=== PATIENT | female | born 1950 ===

== ENCOUNTER 2024-06-29 10:39 | Outpatient (CLI) | payer MEDICARE, SELFPAY ==
--- OUTSIDE RECORDS SUMMARY | 2024-06-29 10:45 | XMS_ITS | Referral Summary ---
Author Organization [facility] at the Medical Office Building Address [address] [place] [phone] Care Team Providers Care Game Trapper Name Role Phone Justina Lepe MD Primary Care Provider Nicolle Collins MD Unavailable [phone] Encounters Date Type Department Care Team Description 05/30/2024 10:35 AM CDT Lab [facility] Lab [address] [place] [address] 05/23/[address] [address] Nicolasa Medellin, RN 05/23/2024 Telephone [facility] Medical [facility] [address] [place] [phone] Justina Lepe MD Medical Question/Miscellane ous 05/15/2024 Telephone [facility] Medical [facility] [address] [place] [phone] Justina Lepe MD Test Results 05/01/2024 Results Follow-Up [facility] [address] [place] [phone] Kellie Bañuelos NP 04/30/2024 11:00 AM CDT - 04/30/2024 11:59 PM CDT Hospital Encounter [facility] - Breast Imaging [address] [place] [address] 8 [place] [address] Abnormal mammogram Discharge Disposition: Discharge to home or self care 04/30/2024 10:30 AM CDT Office Visit [facility] [address] [facility] 8 [place] [address] Kellie Bañuelos NP Encounter for screening mammogram for malignant neoplasm of breast (Primary Dx); Abnormal mammogram; Mass of right breast, unspecified quadrant 04/19/2024 Telephone [facility] [address] [place] [phone] Justina Lepe MD Medical Question/Miscellane ous from Last 3 Months Allergies Active Allergy Reactions Criticality Noted Date Comments Biotin Dizziness Low 03/24/2023 Meperidine Unknown 07/01/2014 Medications medroxyPROGESTE Jase (PROVERA) 2.5 mg tablet Take 1 tablet (2.5 mg total) by mouth daily 11/23/2019 Active estradioL (ESTRACE) 0.5 mg tablet Take 1 tablet (0.5 mg total) by mouth daily 11/23/2019 Active magnesium oxide 400 mg magnesium capsule Take by mouth daily as needed Active ergocalciferol (VITAMIN D) 50,000 unit capsule Every other week 11/12/2019 Active calcium carbonate/vitam in D3 (CALCIUM+D ORAL) Rx: Calcium + D Active fexofenadine (LONG) 180 mg tablet Take 1 tablet (180 mg total) by mouth daily Active multivitamin capsule Take 1 capsule by mouth daily Active finasteride (PROSCAR) 5 mg tablet Take 1 tablet (5 mg total) by mouth daily Active rOPINIRole (REQUIP) 0.5 mg tablet Take 1 tablet (0.5 mg total) by mouth nightly 90 tablet 4 03/29/2024 Active Active Problems Problem Noted Date Diagnosed Date Solitary pulmonary nodule 12/28/2019 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 Bronchiectasis without complication 05/18/2017 Recurrent pneumonia 05/18/2017 Immunizations Immunization Administration Dates Next Due Influenza, Quad, Adjuvantate d, Intramuscular 01/07/2023 Influenza, Quadrivalent, Hig h Dose, Preservative Free, Intrr 01/20/2022,12/08/2020,12/06/2019,12/21,01/20/2018,12/15/2016 Influenza, Quadrivalent, Spl it, Preservative Free, Intramuscular 02/25/2016 Influenza, Trivalent, High D ose, Split, Preservative Free, Intramuscular 12/23/2023,12/21/2018,01/20/2018,12/15 Influenza, Unspecified 03/08/2018,02/25/2016 Moderna SARS-CoV-2 Monovalen t Vaccination (12+ YRS) 04/28/2020,03/31/2020 Pneumococcal Conjugate PCV 13 10/10/2017 Pneumococcal Polysaccharide PPV23 10/06/2016 ZOSTER Recombinant 06/06/2020,02/01/2020 Social History Tobacco Use Types Packs/Day Years Used Date Smoking Tobacco: Never Smokeless Tobacco: Never Tobacco Cessation:Counseling Given: Not Answered Alcohol Use Standard Drinks/Week Comments Yes 0 (1 standard drink = 0.6 oz pur e alcohol) social AUDIT-C Answer Date Recorded Q1: How often do you have a drink containing alc ohol? Monthly or less 05/18/2023 Q2: How many drinks containi ng alcohol do you have on a typical day when you are drinking? 1 or 2 05/18/2023 Q3: How often do you have si x or more drinks on one occasion? Less than monthly 05/18/2023 PHQ-2 Answer Date Recorded PHQ-2 Total Score (If total score is 3 or more points, staff should administer the PHQ-9) 0 03/29/2024 PHQ-9 Answer Date Recorded PHQ-9 Total Score 0 03/29/2024 Comments Unknown Sex and Gender Information Value Date Recorded Sex Assigned at Not on file Legal Sex Female 5:55 PM MANAGEMENT ASSOCIATE Gender Identity Female 11/29/2020 1:15 PM CDT Sexual Orientation Straight 11/29/2020 1: 15 PM CDT Last Filed Vital Signs Vital Sign Reading Time Taken Comments Blood Pressure 120/70 03/29/2024 10:22 AM MANAGEMENT ASSOCIATE Pulse 81 03/29/2024 10:22 AM MANAGEMENT ASSOCIATE Temperature 36.3 C (97.3 F) 03/29/2024 10:22 AM MANAGEMENT ASSOCIATE Respiratory Rate 16 09/22/2020 12:42 PM CDT Oxygen Saturation 95% 03/29/2024 10:22 AM MANAGEMENT ASSOCIATE Inhaled Oxygen Concentration - - Weight 54.2 kg (119 lb 6.4 oz) 04/30/2024 10:39 AM CDT Height 157.5 cm (5' 2 ) 04/30/2024 10:39 AM CDT Body Mass Index 21.84 04/30/2024 10:39 AM CDT Plan of Treatment Not on file Medical Devices Implanted Type Area Ccnp Device Identifier Shelf Expiration Date Model / Serial / Lot Bard Peripheral Vascular Ultraclip Bard 17ga 10cm 2 Trigger Permanent Ultrasound [id number] - [id number] Implanted:Qty: 1 on 08/09/2023 by Yareli Sanchez MD at [facility] Right: Breast Bard Peripheral Vascular [id number] / / Procedures Procedure Name Priority Date/Time Associated Diagnosis Comments EGFR Routine 05/30/2024 11:35 AM CDT CREATININE Routine 05/30/2024 11:35 AM CDT SCREENING MAMMOGRAM BILATERAL W BAYRON Schedule Routine, Read Routine (OP Routine) 04/30/2024 11:14 AM CDT Abnormal mammogram HM DEXA SCAN Routine 05/10/2022 COLONOSCOPY Routine 08/06/2014 from Last 3 Months or Most Recently Relevant to Health Maintenance Results * eGFR (05/30/2024 11:35 AM CDT) eGFR 68 >=60 mL/min/1. 73 m2 Comment: Interpretive Data Reference Interval Normal >/= 90 mL/min/1.73m2 Mildly decreased* 60 - 89 mL/min/1.73m2 Mildly to moderately decreased 45 - 59 mL/min/1.73m2 Moderately to severely decreased 30 - 44 mL/min/1.73m2 Severely decreased 15 - 29 mL/min/1.73m2 Kidney Failure < 15 mL/min/1.73m2 *Relative to young adult level Estimated glomerular filtration rate is determined by the 2020 CKD-EPI equation recommended by the National Kidney Foundation (A Unifying Approach to GFR Estimation: Recommendations of the NKF-ASK Task Force on Reassessing the Inclusion of Race in Diagnosing Kidney Disease, JASN 2020). The CKD-EPI equation should not be used for patients with unstable renal function and has not been validated in children and those over 70. Current interpretive data was last reviewed 2020. Testing performed by: [address] [address] Blood 05/30/2024 11:3 5 AM CDT 05/30/2024 11:51 AM CDT Nicolle Collins MD LAB BLOOD ORDERABLES Fin al Result Performing Organization Address [facility] Co de Phone Number [address] [employer] [place] [address] * Creatinine (05/30/2024 11:35 AM CDT) Creatinine 0.90 0.60 - 1.10 mg/dL Comment:Testing performed by : [facility], [address] [place] [address]., [id number] Blood 05/30/2024 11:3 5 AM CDT 05/30/2024 11:51 AM CDT Nicolle Collins MD LAB BLOOD ORDERABLES Fin al Result Performing Organization Address City/[facility] Co de Phone Number [address] [place] [address] * Screening Mammogram Bilateral W Bayron (04/30/2024 11:14 AM CDT) Anatomical Region Laterality Modality Breast Bilateral Mammography Narrative 05/01/2024 3:08 PM CDT Mammogram Technique: Bilateral Digital Breast Tomosynthesis, Bilateral C-view 2D Screening mammogram. Views obtained: . Computer Aided Detection was performed. Mammogram Findings: The present examination has been compared to prior imaging studies performed on 02/08/2018, 02/09/2019, 02/29/2020, 03/09/2021, 05/10/2022, 05/28/2022 and 05/19/2023, and at [facility] on 07/12/2023. The breasts are extremely dense, which lowers the sensitivity of mammography. There are calcifications in both breasts. There are no significant changes from the prior study. There is no suspicious abnormality in either breast. Impression: There is no mammographic evidence of malignancy. Annual screening mammography is recommended. Consider breast MRI for supplemental screening given the patient's extremely dense breast tissue. OVERALL FINAL ASSESSMENT: BI-RADS CATEGORY 2: Benign. Procedure Note Dana Nation MD - 05/01/2024 Mammogram Technique: Bilateral Digital Breast Tomosynthesis, Bilateral C-view 2D Screening mammogram. Views obtained: . Computer Aided Detection was performed. Mammogram Findings: The present examination has been compared to prior imaging studies performed on 02/08/2018, 02/09/2019, 02/29/2020, 03/09/2021, 05/10/2022, 05/28/2022 and 05/19/2023, and at [facility] on 07/12/2023. The breasts are extremely dense, which lowers the sensitivity of mammography. There are calcifications in both breasts. There are no significantchanges from the prior study. There is no suspicious abnormality in either breast. Impression: There is no mammographic evidence of malignancy. Annual screening mammography is recommended. Consider breast MRI for supplemental screening given the patient's extremely dense breasttissue. OVERALL FINAL ASSESSMENT: BI-RADS CATEGORY 2: Benign. Kellie Bañuelos NP IMG MAMMO PROCEDURES Final Result * DEXA SCAN (05/10/2022) Scribed Deca Scan Normal Historical Provider HEALTH MAINTENANCE Final Result * Colonoscopy (08/06/2014) Anatomical Region Laterality Modality Other us Historical Provider ENDOSCOPY PROCEDURES Soas l Result from Last 3 Months or Most Recently Relevant to Health Maintenance Insurance AETNA MEDICARE AET MEDICARE Care Teams Game Trapper Relationship Specialty Start Date End Date Justina Lepe MD PCP - General 07/22/18 Nicolle Collins MD [address] [facility] [address] [place] [phone] Referring Physician Gynecology 05/23/24
--- OUTSIDE RECORDS SUMMARY | 2024-06-29 10:45 | XMS_ITS | Encounter Summary ---
Author Organization [facility] Address [address] [facility] [address] [place] [address] Phone Care Team Providers Care Implementation Specialist Name Role Phone Justina Lepe MD Primary Care Provider Nicolle Collins MD Unavailable [phone] Encounter Details Date Type Department Care Team (Late st Contact Info) Description 05/01/2024 Results Follow-Up [facility] Surgery [address] [facility] Floor 8 [place] [phone] Kellie Bañuelos, ARUNA [address] [facility] [phone] [place] [address] Social History Tobacco Use Types Packs/Day Years Used Date Smoking Tobacco: Never Smokeless Tobacco: Never Alcohol Use Standard Drinks/Week Comments Yes 0 [...] on file Legal Sex Female 5:55 PM ELIGIBILITY WORKER Gender Identity Female 11/29/2020 1:15 PM CDT Sexual Orientation Straight 11/29/2020 1: 15 PM CDT documented as of this encounter Plan of Treatment Not on file documented as of this encounter Visit Diagnoses Not on filedocumented in this encounter Care Teams Implementation Specialist Relationship Specialty Start Date End Date Justina Lepe MD PCP - General 07/22/18 Nicolle Collins MD [facility] [address] [address] Referring Physician Gynecology 05/23/24 documented as of this encounter
--- OUTSIDE RECORDS SUMMARY | 2024-06-29 10:45 | XMS_ITS | Clinical Summary ---
Author Organization [facility] Address [facility] [place] [address] Care Team Providers Care Forest Firefighter Name Role Phone Justina Lepe MD Primary Care Provider [phone] Allergies Active Allergy Reactions Criticality Noted Date Comments Meperidine Unknown 07/01/2014 Medications Ca & Phos-Vit D-Mag (CALCIUM) [phone] Tab Active vitamin B-12 500 MCG tablet Activ e vitamin D2, ergocalciferol, [address]86 UNITS capsule 03/21/2014 Active Magnesium Oxide -Mg Supplement 400 MG Cap Active estradiol 0.5 MG tablet Take 0.5 mg by mouth daily. Active fexofenadine 180 MG tablet Rx: Cassy Acti ve medroxyPROGESTE Jase 2.5 MG tablet 11/23/2019 Active Multiple Vitamin (MULTIVITAMIN) capsule Take 1 capsule by mouth daily. 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 [address] [facility] [place] [address] Nicolle Collins MD Discharge Disposition: Home or Self Care (Routine Discharge) 05/11/2024 Travel from Last 3 Months Immunizations Immunization Administration Dates Next Due Fluzone High Dose - >Age 65 (Prefilled Syringe) 12/08/2020,12/06/2019,12/21/2018,2017,12/15/2016 Influenza (Generic) 03/08/2018 Influenza Adult (Generic) 03/08/2018,02/25/2016, 02/25/2016 MODERNA COVID-19 (12+) MRNA, LNP-S, PF, 100 MCG/ 0.5 ML DOSE 04/28/2020,03/31/2020 Pneumococcal (Pneumovax 23) 10/06/2016 Pneumococcal (Prevnar 13) 10/10/2017 Family History Medical History Relation Comments No Known Problems Brother Dementia Father Hypertension Mother Breast Cancer Other maternal great a unt No Known Problems Sister 1 No Known Problems Sister 2 Relation Status Comments Brother Alive Father Mother Alive Other Sister 1 Alive Sister 2 Alive Social History Tobacco Use Types Packs/Day Years Used Date Smoking Tobacco: Never Smokeless Tobacco: Never Tobacco Cessation:Counseling Given: Yes Alcohol Use Standard Drinks/Week Comments Yes 0 (1 standard drink = 0.6 oz pur e alcohol) rare AUDIT-C Answer Date Recorded Frequency of Alcohol Consumption Never 05/03/2019 Average Number of Drinks Not on file 020 Frequency of Binge Drinking Not on file 04/21 PHQ-2 Answer Date Recorded PHQ-2 Score - If the patient scores above 3, please move on to questions 3-9 0 12/30/2020 Comments No Sex and Gender Information Value Date Recorded Sex Assigned at Female 04/12/2019 9:53 AM PAYABLE PROCESSOR Legal Sex Female 6:38 PM CDT Gender Identity Female 04/12/2019 9:53 AM PAYABLE PROCESSOR Sexual Orientation Straight 04/12/2019 9: 53 AM PAYABLE PROCESSOR Last Filed Vital Signs Vital Sign Reading Time Taken Comments Blood Pressure 129/87 12/30/2021 10:33 AM PAYABLE PROCESSOR Pulse 78 12/30/2021 10:33 AM PAYABLE PROCESSOR Temperature 35.9 C (96.7 F) 12/30/2021 10:33 AM PAYABLE PROCESSOR Respiratory Rate 28 12/30/2021 10:33 AM PAYABLE PROCESSOR Oxygen Saturation 100% 12/30/2021 10:33 AM PAYABLE PROCESSOR Inhaled Oxygen Concentration - - Weight 53.5 kg (118 lb) 12/30/2021 10:33 AM PAYABLE PROCESSOR Height 157.5 cm (5' 2 ) 12/30/2021 10:33 AM PAYABLE PROCESSOR Body Mass Index 21.58 12/30/2021 10:33 AM PAYABLE PROCESSOR Plan of Treatment Health Maintenance Due Date Last Done Comments Colorectal Cancer Screening Colonoscopy (10 Years) 1950 Hepatitis C 12/06/1969 DTaP, Tdap and Td Vaccines (1 - Tdap) 12/06/1970 RSV Immunization or 60+ Years (1 - Risk 60-74 years 1-dose series) 2011 Annual Medicare Wellness Visit 12/06/2016 Pneumococcal Vaccine: 50+ Years (3 of 3 - PCV20 or PCV21) 10/10/2022 10/10/2017, 10/06/2016 COVID-19 Vaccine (3 - season) 2023 04/28/2020, 03/31/2020 Mammogram Screening 04/30/2026 04/30/2024, 07/12/2023, 05/16/2023, Additional history exists Zoster Vaccines Completed 06/06/2020, 02/01/2020 Dexa Scan (General) Completed 05/11/2024, 05/10/2022, 02/29/2020, Additional history exists Meningococcal B Vaccine Aged Out No l onger eligible based on patient's age to complete this topic Meningococcal Vaccine Aged Out No christie jimmy eligible based on patient's age to complete this topic RSV Immunizations Under 20 Months Aged Out No longer eligible based on patient's age to complete this topic Procedures Procedure Name Priority Date/Time Associated Diagnosis Comments BONE DENSITY/DEXA Routine 05/11/2024 9:0 9 AM CDT Postmenopausal status MG DIAG W BAYRON BILAT DIGI Routine 05/16/2023 11:24 AM CDT Lump of right breast Unspecified lump in the right breast, upper outer quadrant from Last 3 Months or Most Recently Relevant to Health Maintenance Results * BONE DENSITY/DEXA (05/11/2024 9:09 AM CDT) Anatomical Region Laterality Modality Bone Mammography 05/11/2024 9:06 AM CDT Impressions 05/11/2024 9:08 AM CDT IMPRESSION: WHO Classification: Osteoporosis. RECOMMENDATIONS: All patients should ensure an adequate intake of dietary calcium and vitamin D. The NOF recommend adults under the age of 50 need 1000 mg of calcium and 400-800 IU of vitamin D daily. Effective therapy for the prevention and treatment of osteoporosis include bisphosphonates. FOLLOW-UP: People with diagnosed cases of osteoporosis or at high risk for fracture should have regular bone mineral density test. For patients eligible for Medicare, routine testing is allowed once every 2 years. Testing frequency can be increased to one year for patients who have rapidly progressing disease, those who are receiving or discontinuing medical therapy to restore bone mass, or have additional risk factors. Ordered By: NICOLLE COLLINS Interpreted By: Aaron Zavala, 05/11/2024 9:06 AM Narrative 05/11/2024 9:08 AM CDT [facility] [address] [place] [address] EXAMINATION: BONE DENSITY/DEXA INDICATIONS: Asymptomatic menopausal state COMPARISON: 05/10/2022 TECHNIQUE: DEXA bone mineral density evaluation was performed in the AP projection over the lumbar spine and both hips utilizing standard imaging techniques. FINDINGS: The BMD measured at the AP spine L1-L4 is 0.921 g/cm? with a T-score of -1.1 (previously 0.961 g/cm? with a T-score of -0.8). The BMD measured at the left femoral neck is 0.570 g/cm? with a T-score of -2.5 (previously 0.578 g/cm? with a T-score of -2.4). The BMD measured at the left hip is 0.770 g/cm? with a T-score of -1.4 (previously 0.737 g/cm? with a T-score of -1.7). The BMD measured at the right femoral neck is 0.610 g/cm? with a T-score of -2.2 (previously 0.614 g/cm? with a T-score of -2.1). The BMD measured at the right hip is 0.734 g/cm? with a T-score of -1.7 (previously 0.715 g/cm? with a T-score of -1.9). FRAX 10-year fracture risk: Major Osteoporotic Fracture: 14% Hip Fracture: 3.9% Procedure Note Aaron Zavala MD - 05/11/2024 [facility] [address] [place] [address] EXAMINATION: BONE DENSITY/DEXA INDICATIONS: Asymptomatic menopausal state COMPARISON: 05/10/2022 TECHNIQUE: DEXA bone mineral density [facility] the lumbar spine and both hips utilizing standard imagingtechniques. FINDINGS: The BMD measured at the AP spine L1-L4 is 0.921 g/cm? with a T-score of-1.1 (previously 0.961 g/cm? with a T-score of -0.8). The BMD measured at the left femoral neck is 0.570 g/cm? with a T-score of-2.5 (previously 0.578 g/cm? with a T-score of -2.4). The BMD measured at the left hip is 0.770 g/cm? with a T-score of - 1.4(previously 0.737 g/cm? with a T-score of -1.7). The BMD measured at the right femoral neck is 0.610 g/cm? with a T-scoreof -2.2 (previously 0.614 g/cm? with a T-score of -2.1). The BMD measured at the right hip is 0.734 g/cm? with a T-score of - 1.7(previously 0.715 g/cm? with a T-score of -1.9). FRAX 10-year fracture risk: Major Osteoporotic Fracture: 14% Hip Fracture: 3.9% IMPRESSION: WHO Classification: Osteoporosis. RECOMMENDATIONS: All patients should ensure an adequate intake of dietary calcium andvitamin D. The NOF recommend adults under the age of 50 need 1000 mg ofcalcium and 400-800 IU of vitamin D daily. Effective therapy for theprevention and treatment of osteoporosis include bisphosphonates. FOLLOW-UP: People with diagnosed cases of osteoporosis or at high risk for fractureshould have regular bone mineral density test. For patients eligible forMedicare, routine testing is allowed once every 2 years. Testing frequencycan be increased to one year for patients who have rapidly progressingdisease, those who are receiving or discontinuing medical therapy torestore bone mass, or have additional risk factors. Ordered By: NICOLLE COLLINS Interpreted By: Aaron Zavala, 05/11/2024 9:06 AM Nicolle Collins MD DEXA Final Res ult from Last 3 Months Insurance AETNA Care Teams Forest Firefighter Relationship Specialty Start Date End Date Justina Lepe MD PCP - General INTERNAL MEDICINE 06/29/17
--- OUTSIDE RECORDS SUMMARY | 2024-06-29 10:45 | XMS_ITS | Encounter Summary ---
Author Organization [facility] Address [address] [place] [address] Care Team Providers Care Red Mud Thickener Operator Name Role Phone Unavailable Primary Care Provider Unavailabl e Reason for Visit * Diagnostic Imaging (Routine) - Closed Specialty Diagnoses / Procedures Referred By Contac t Referred To Contact Procedures Breast Imaging Diagnostic Outside Reference Transcribed Order, Provider Referral ID Status Reason Start Date Expiration Date Visits Re quested Visits Authorized [id number] Closed 04/18/2023 05/17/2024 1 1 Encounter Details Date Type Department Care Team (Late st Contact Info) Description 01/20/2017 12:05 AM PUMP OPERATOR BYPRODUCTS Hospital Encounter [facility] [address] [place] [address] Social History Tobacco Use Types Packs/Day Years [...] on file Legal Sex Female 5:55 PM PUMP OPERATOR [employer]PRODUCTS Gender Identity Female 11/29/2020 1:15 PM CDT Sexual Orientation Straight 11/29/2020 1: 15 PM CDT documented as of this encounter Functional Status * Audit-C Score Answer Date of Assessment Author 2 03/28/2024 12:15 PM PUMP OPERATOR BYPRODUCTS Launn Flores Provider * Q1: How often do you have a drink containing alcohol? Answer Date of Assessment Author 2-4 times a month 03/28/2024 12:15 PM PUMP OPERATOR BYPRODUCTS Luann Nam Provider * Q2: How many drinks containing alcohol do you have on a typical day when you are drinking? Answer Date of Assessment Author 1 or 2 03/28/2024 12:15 PM PUMP OPERATOR BYPRODUCTS Luann Flores Provider * Q3: How often do you have six or more drinks on one occasion? Answer Date of Assessment Author Never 03/28/2024 12:15 PM PUMP OPERATOR [employer]PRODUCTS Luann Flores Provider documented as of this encounter Plan of Treatment Not on file documented as of this encounter Procedures Procedure Name Priority Date/Time Associated Diagnosis Comments BREAST IMAGING MG DIAGNOSTIC OUTSIDE REFERENCE Routine 01/20/2017 12:05 AM PUMP OPERATOR BYPRODUCTS documented in this encounter Results * Breast Imaging Diagnostic Outside Reference (01/20/2017 12:05 AM PUMP OPERATOR BYPRODUCTS) Impressions [facility] - 04/18/2023 3:33 PM PUMP OPERATOR BYPRODUCTS These images are for Reference purposes only and have not been reviewed by [facility]. There will be no report generated by a [facility] Radiologist. Narrative [facility] - 04/18/2023 3:33 PM PUMP OPERATOR BYPRODUCTS EXAMINATION: Images For Reference Purposes Only us Provider Transcribed Order IMG MAMMO PROCEDURES Final Result [facility] documented in this encounter Visit Diagnoses Not on filedocumented in this encounter
--- OUTSIDE RECORDS SUMMARY | 2024-06-29 10:45 | XMS_ITS | Encounter Summary ---
Author Organization [facility] Healthcare Address [address] [place] [address] Care Team Providers Care Insurance Coder Name Role Phone Justina Lepe MD Primary Care Provider Reason for Visit * Diagnostic Imaging (Routine) - Closed Specialty Diagnoses / Procedures Referred By Contac t Referred To Contact Procedures Breast Imaging Screening Outside Reference Transcribed Order, Provider Referral ID Status Reason Start Date Expiration Date Visits Re quested Visits Authorized [id number] Closed 04/18/2023 05/17/2024 1 1 Encounter Details Date Type Department Care Team (Late st Contact Info) Description 02/09/2019 Hospital Encounter [facility] [address] [place] [phone] Social History Tobacco Use Types Packs/Day Years [...] on file Legal Sex Female 5:55 PM VP OF PRODUCT Gender Identity Female 11/29/2020 1:15 PM CDT Sexual Orientation Straight 11/29/2020 1: 15 PM CDT documented as of this encounter Functional Status * Audit-C Score Answer Date of Assessment Author 2 03/28/2024 12:15 PM VP OF PRODUCT Luann Flores Provider * Q1: How often do you have a drink containing alcohol? Answer Date of Assessment Author 2-4 times a month 03/28/2024 12:15 PM VP OF PRODUCT Luann Nam Provider * Q2: How many drinks containing alcohol do you have on a typical day when you are drinking? Answer Date of Assessment Author 1 or 2 03/28/2024 12:15 PM VP OF PRODUCT Luann Flores Provider * Q3: How often do you have six or more drinks on one occasion? Answer Date of Assessment Author Never 03/28/2024 12:15 PM VP OF PRODUCT Luann Flores Provider documented as of this encounter Plan of Treatment Not on file documented as of this encounter Procedures Procedure Name Priority Date/Time Associated Diagnosis Comments BREAST IMAGING MG SCREENING OUTSIDE REFERENCE Routine 02/09/2019 12:00 AM VP OF PRODUCT documented in this encounter Results * Breast Imaging Screening Outside Reference (02/09/2019 12:00 AM VP OF PRODUCT) Impressions [facility]MO[facility] - 04/18/2023 3:33 PM VP OF PRODUCT These images are for Reference purposes only and have not been reviewed by [facility] Radiology. There will be no report generated by a [facility] Radiologist. Narrative [facility]MO[facility] - 04/18/2023 3:33 PM VP OF PRODUCT EXAMINATION: Images For Reference Purposes Only us Provider Transcribed Order IMG MAMMO PROCEDURES Final Result [facility] documented in this encounter Visit Diagnoses Not on filedocumented in this encounter Care Teams Insurance Coder Relationship Specialty Start Date End Date Justina Lepe MD PCP - General 07/22/18 documented as of this encounter
--- OUTSIDE RECORDS SUMMARY | 2024-06-29 10:45 | XMS_ITS | Encounter Summary ---
Author Organization [facility] Healthcare Address [address] [place] [address] Care Team Providers Care Asbestos Removal Worker Name Role Phone Unavailable Primary Care Provider Unavailabl e Reason for Visit * Diagnostic Imaging (Routine) - Closed Specialty Diagnoses / Procedures Referred By Contac t Referred To Contact Procedures Breast Imaging Screening Outside Reference Transcribed Order, Provider Referral ID Status Reason Start Date Expiration Date Visits Re quested Visits Authorized [id number] Closed 04/18/2023 05/17/2024 1 1 Encounter Details Date Type Department Care Team (Late st Contact Info) Description 01/07/2017 Hospital Encounter [facility] Radiology [facility] [address] [place] [address] [phone] Social History Tobacco Use Types Packs/Day Years [...] on file Legal Sex Female 5:55 PM BROACH GRINDER Gender Identity Female 11/29/2020 1:15 PM CDT Sexual Orientation Straight 11/29/2020 1: 15 PM CDT documented as of this encounter Functional Status * Audit-C Score Answer Date of Assessment Author 2 03/28/2024 12:15 PM BROACH GRINDER Luann Flores Provider * Q1: How often do you have a drink containing alcohol? Answer Date of Assessment Author 2-4 times a month 03/28/2024 12:15 PM BROACH GRINDER Luann Nam Provider * Q2: How many drinks containing alcohol do you have on a typical day when you are drinking? Answer Date of Assessment Author 1 or 2 03/28/2024 12:15 PM BROACH GRINDER Luann Flores Provider * Q3: How often do you have six or more drinks on one occasion? Answer Date of Assessment Author Never 03/28/2024 12:15 PM BROACH GRINDER Luann Florse Provider documented as of this encounter Plan of Treatment Not on file documented as of this encounter Procedures Procedure Name Priority Date/Time Associated Diagnosis Comments BREAST IMAGING MG SCREENING OUTSIDE REFERENCE Routine 01/07/2017 12:00 AM BROACH GRINDER documented in this encounter Results * Breast Imaging Screening Outside Reference (01/07/2017 12:00 AM BROACH GRINDER) Impressions [facility]MO[facility] - 04/18/2023 3:33 PM BROACH GRINDER These images are for Reference purposes only and have not been reviewed by [facility] Radiology. There will be no report generated by a [facility] Radiologist. Narrative RAD[facility]MAMMO[facility] - 04/18/2023 3:33 PM BROACH GRINDER EXAMINATION: Images For Reference Purposes Only us Provider Transcribed Order IMG MAMMO PROCEDURES Final Result [facility] documented in this encounter Visit Diagnoses Not on filedocumented in this encounter
--- OUTSIDE RECORDS SUMMARY | 2024-06-29 10:45 | XMS_ITS | Encounter Summary ---
Author Organization [facility] Facility Care Team Providers Care Inhalation Therapy Aide Name Role Phone Justina Lepe MD Primary Care Provider Nicolle Collins MD Unavailable [phone] Encounter Details Date Type Department Care Team (Latest Contact Info) Description 09/30/2017 Orders Only [facility] Provider, MD Mary Ellen [address] [place] [phone] Social History Tobacco Use Types Packs/Day Years Used Date Smoking Tobacco: Never Assessed Comments Unknown Sex and Gender Information Value Date Recorded Sex Assigned at Not on file Legal Sex Female 5:55 PM CYBER SECURITY ARCHITECT Gender Identity Female 11/29/2020 1:15 PM CDT Sexual Orientation Straight 11/29/2020 1: 15 PM CDT documented as of this encounter Plan of Treatment Not on file documented as of this encounter Procedures Procedure Name Priority Date/Time Associated Diagnosis Comments SCAN - LABS 09/30/2017 12:00 AM CDT SCAN - LABS 09/30/2017 12:00 AM CDT documented in this encounter Results * SCAN - LABS (09/30/2017 12:00 AM CDT) Narrative 09/30/2017 12:00 AM CDT Ordered by an unspecified provider. Historical Provider Final Res ult * SCAN - LABS (09/30/2017 12:00 AM CDT) Narrative 09/30/2017 12:00 AM CDT Ordered by an unspecified provider. us Historical Provider Final Res ult documented in this encounter Visit Diagnoses Not on filedocumented in this encounter Care Teams Inhalation Therapy Aide Relationship Specialty Start Date End Date Justina Lepe MD PCP - General 07/22/18 Nicolle Collins MD [address] [place] [id number] Referring Physician Gynecology 05/23/24 documented as of this encounter
--- OUTSIDE RECORDS SUMMARY | 2024-06-29 10:45 | XMS_ITS | Clinical Summary ---
Author Organization [facility] Address [address] [place] [phone] Care Team Providers Care Machine Bander And Cellophaner Name Role Phone Justina Lepe MD Primary Care Provider Nicolle Collins MD Unavailable Allergies Active Allergy Reactions Criticality Noted Date [...] Bronchiectasis without complication 05/18/2017 Recurrent pneumonia 05/18/2017 Encounters Date Type Department Care Team Description 05/30/2024 10:35 AM CDT Lab [facility] Lab [address] [place] [address] 05/23/2024 Telephone [facility] [address] [place] [phone] Nicolasa Medellin RN 05/23/2024 Telephone [facility] [address] [place] [phone] Justina Lepe MD Medical Question/Miscellane ous 05/15/2024 Telephone [facility] Care [address] [place] [phone] Justina Lepe MD Test Results 05/01/2024 Results Follow-Up [facility] Surgery [address] [place] [phone] Kellie Bañuelos NP 04/30/2024 11:00 AM CDT - 04/30/2024 11:59 PM CDT Hospital Encounter [facility] [employer] - Breast Imaging [address] [place] [phone] Abnormal mammogram Discharge Disposition: Discharge to home or self care 04/30/2024 10:30 AM CDT Office Visit [facility] [address] [place] [phone] Kellie Bañuelos NP Encounter for screening mammogram for malignant neoplasm of breast (Primary Dx); Abnormal mammogram; Mass of right breast, unspecified quadrant 04/19/2024 Telephone [facility] [address] [place] [phone] Justina Lepe MD Medical Question/Miscellane ous from Last 3 Months Immunizations Immunization Administration Dates Next Due Influenza, Quad, Adjuvantate d, Intramuscular 01/07/2023 Influenza, Quadrivalent, Hig h Dose, Preservative Free, Intrr 01/20/2022,12/08/2020,12/06/2019,12/21,01/20/2018,12/15/2016 Influenza, Quadrivalent, Spl it, Preservative Free, Intramuscular 02/25/2016 Influenza, Trivalent, High D ose, Split, Preservative Free, Intramuscular 12/23/2023,12/21/2018,01/20/2018,12/15 Influenza, Unspecified 03/08/2018,02/25/2016 Moderna SARS-CoV-2 Monovalen t Vaccination (12+ YRS) 04/28/2020,03/31/2020 Pneumococcal Conjugate PCV 13 10/10/2017 Pneumococcal Polysaccharide PPV23 10/06/2016 ZOSTER Recombinant 06/06/2020,02/01/2020 Surgical History Surgery Date Site/Laterality Comments CYST REMOVAL BREAST BIOPSY 08/09/2023 Right Family History Medical History Relation Name Comments Dementia Father Dementia Mother Hypertension Mother Breast cancer Mother's Sister Relation Name Status Comments Brother Alive Father Mother Alive Mother's Sister Sister 1 Alive Sister 2 Alive Social [...] on file Legal Sex Female 5:55 PM MANAGER OPERATING Gender Identity Female 11/29/2020 1:15 PM CDT Sexual Orientation Straight 11/29/2020 1: 15 PM CDT Obstetrics History Last Filed Vital Signs Vital Sign Reading Time Taken Comments Blood Pressure 120/70 03/29/2024 10:22 AM MANAGER OPERATING Pulse 81 03/29/2024 10:22 AM MANAGER OPERATING Temperature 36.3 C (97.3 F) 03/29/2024 10:22 AM MANAGER OPERATING Respiratory Rate 16 09/22/2020 12:42 PM CDT Oxygen Saturation 95% 03/29/2024 10:22 AM MANAGER OPERATING Inhaled Oxygen Concentration - - Weight 54.2 kg (119 lb 6.4 oz) 04/30/2024 10:39 AM CDT Height 157.5 cm (5' 2 ) 04/30/2024 10:39 AM CDT Body Mass Index 21.84 04/30/2024 10:39 AM CDT Plan of Treatment Health Maintenance Due Date Last Done Comments Hepatitis C Screening 1950 DTaP/Tdap/Td Vaccine (1 - Tdap) 12/06/1962 Hepatitis B Screening 12/06/1969 Pneumococcal vaccine 65+ (3 of 3 - PCV20 or PCV21) 10/10/2022 10/10/2017, 10/06/2016 Covid-19 Vaccine (4 - 2023-2 5 season) 2023 03/17/2021, 04/28/2020, 03/31/2020 Colon Cancer Screening-Colonoscopy 08/06/2024 08/06/2014 Depression Screening 03/29/2025 03/29/2024, 03/29/2024, 06/06/2023, Additional history exists Fall Risk Assessment 03/29/2025 03/29/2024, 03/24/2023, 03/18/2022, Additional history exists Well Visit 65+ 03/29/2025 03/29/2024, 02/2023, 03/18/2022, Additional history exists Breast Cancer Screening-Mammogram 04/30/2025 04/30/2024, 05/26/2023, 05/16/2023, Additional history exists Osteoporosis Screening-Bone Density Scan 05/11/2026 05/11/2024, 05/10/2022, 05/10/2022, Additional history exists Colon Cancer Screening-CT Colonography Discontinued 08/06/2014 Colon Cancer Screening-DNA Stool Discontinued 08/07/19 Colon Cancer Screening-FIT Discontinued 08/06/2014 Colon Cancer Screening-Sigmoidoscopy Discontinued 08/06/2014 Zoster Vaccine Completed 06/06/2020, 02/01/2020 Influenza Vaccine Completed 12/23/2023, , 01/20/2022, Additional history exists Medical Devices Implanted Type Area Metal Box Maker Device Identifier Shelf Expiration Date Model / Serial / Lot Bard Peripheral Vascular Ultraclip Bard 17ga 10cm 2 Trigger Permanent Ultrasound [id number] - [id number] Implanted:Qty: 1 on 08/09/2023 by Yareli Sanchez MD at [facility] Right: Breast Bard Peripheral Vascular [id number] / / Procedures Procedure Name Priority Date/Time [...] was last reviewed 2020. Testing performed by: [facility], [address] [place] [address]., [id number] Blood 05/30/2024 11:3 5 AM CDT 05/30/2024 11:51 AM CDT Nicolle Collins MD LAB BLOOD ORDERABLES Fin al Result Performing Organization Address [facility] Co de Phone Number [facility] [place] [address] * Creatinine (05/30/2024 11:35 AM CDT) Creatinine 0.90 0.60 - 1.10 mg/dL Comment:Testing performed by : [facility], [address] [place] [address]., [id number] Blood 05/30/2024 11:3 5 AM CDT 05/30/2024 11:51 AM CDT Nicolle Collins MD LAB BLOOD ORDERABLES Fin al Result Performing Organization Address [facility] de Phone Number [address] [address] * Screening Mammogram Bilateral W [place]ron (04/30/2024 [...] 03/09/2021, 05/10/2022, 05/28/2022 and 05/19/2023, and at [facility] on 07/12/2023. The breasts are extremely dense, [...] 03/09/2021, 05/10/2022, 05/28/2022 and 05/19/2023, and at [facility] on 07/12/2023. The breasts are extremely dense, [...] DEXA SCAN (05/10/2022) Scribed Deca Scan Normal us Historical Provider HEALTH MAINTENANCE Final Result * Colonoscopy (08/06/2014) Anatomical Region Laterality Modality Other us Historical Provider ENDOSCOPY PROCEDURES Sosa l Result from Last 3 Months or Most Recently Relevant to Health Maintenance Insurance AETNA MEDICARE AETNA MEDICARE Care Teams Machine Bander And Cellophaner Relationship Specialty Start Date End Date Justina Lepe MD PCP - General 07/22/18 Nicolle Collins MD [address] [address] Referring Physician Gynecology 05/23/24
--- OUTSIDE RECORDS SUMMARY | 2024-06-29 10:45 | XMS_ITS | Encounter Summary ---
Author Organization [facility] Healthcare Address [address] [place] [address] Care Team Providers Care Mushroom Sorter Grader Name Role Phone Unavailable Primary Care Provider Unavailabl e Reason for Visit * Diagnostic Imaging (Routine) - Closed Specialty Diagnoses / Procedures Referred By Contac t Referred To Contact Procedures Breast Imaging US Outside Reference Transcribed Order, Provider Referral ID Status Reason Start Date Expiration Date Visits Re quested Visits Authorized [id number] Closed 04/18/2023 05/17/2024 1 1 Encounter Details Date Type Department Care Team (Late st Contact Info) Description 01/20/2017 Hospital Encounter [facility]iology [facility] [address] [place] [phone] Social History Tobacco Use Types Packs/Day Years [...] on file Legal Sex Female 5:55 PM PLASTIC BOAT BUFFER Gender Identity Female 11/29/2020 1:15 PM CDT Sexual Orientation Straight 11/29/2020 1: 15 PM CDT documented as of this encounter Functional Status * Audit-C Score Answer Date of Assessment Author 2 03/28/2024 12:15 PM PLASTIC BOAT BUFFER Luann Flores Provider * Q1: How often do you have a drink containing alcohol? Answer Date of Assessment Author 2-4 times a month 03/28/2024 12:15 PM PLASTIC BOAT BUFFER Luann Nam Provider * Q2: How many drinks containing alcohol do you have on a typical day when you are drinking? Answer Date of Assessment Author 1 or 2 03/28/2024 12:15 PM PLASTIC BOAT BUFFER Luann Flores Provider * Q3: How often do you have six or more drinks on one occasion? Answer Date of Assessment Author Never 03/28/2024 12:15 PM PLASTIC BOAT BUFFER Luann Flores Provider documented as of this encounter Plan of Treatment Not on file documented as of this encounter Procedures Procedure Name Priority Date/Time Associated Diagnosis Comments BREAST IMAGING US OUTSIDE REFERENCE Routine 01/20/2017 12:00 AM PLASTIC BOAT BUFFER documented in this encounter Results * Breast Imaging US Outside Reference (01/20/2017 12:00 AM PLASTIC BOAT BUFFER) Impressions [facility]MO[facility] - 04/18/2023 3:33 PM PLASTIC BOAT BUFFER These images are for Reference purposes only and have not been reviewed by [facility] Radiology. There will be no report generated by a [facility] Radiologist. Narrative RAD_MAMMO[facility] - 04/18/2023 3:33 PM PLASTIC BOAT BUFFER EXAMINATION: Images For Reference Purposes Only us Provider Transcribed Order IMG MAMMO PROCEDURES Final Result [facility] documented in this encounter Visit Diagnoses Not on filedocumented in this encounter
--- OUTSIDE RECORDS SUMMARY | 2024-06-29 10:45 | XMS_ITS | Encounter Summary ---
Author Organization [facility] Healthcare Address [address] [place] [address] Care Team Providers Care Director Data Name Role Phone Justina Lepe MD Primary Care Provider Reason for Visit * Diagnostic Imaging (Routine) - Closed Specialty Diagnoses / Procedures Referred By Contac t Referred To Contact Procedures Breast Imaging Screening Outside Reference Transcribed Order, Provider Referral ID Status Reason Start Date Expiration Date Visits Re quested Visits Authorized [id number] Closed 04/18/2023 05/17/2024 1 1 Encounter Details Date Type Department Care Team (Late st Contact Info) Description 02/29/2020 Hospital Encounter [facility]iology [facility] [address] [place] [phone] Social History Tobacco Use Types Packs/Day Years [...] on file Legal Sex Female 5:55 PM ANIMAL NUTRITION TEACHER Gender Identity Female 11/29/2020 1:15 PM CDT Sexual Orientation Straight 11/29/2020 1: 15 PM CDT documented as of this encounter Functional Status * Audit-C Score Answer Date of Assessment Author 2 03/28/2024 12:15 PM ANIMAL NUTRITION TEACHER Luann Flores Provider * Q1: How often do you have a drink containing alcohol? Answer Date of Assessment Author 2-4 times a month 03/28/2024 12:15 PM ANIMAL NUTRITION TEACHER Luann Nam Provider * Q2: How many drinks containing alcohol do you have on a typical day when you are drinking? Answer Date of Assessment Author 1 or 2 03/28/2024 12:15 PM ANIMAL NUTRITION TEACHER Luann Flores Provider * Q3: How often do you have six or more drinks on one occasion? Answer Date of Assessment Author Never 03/28/2024 12:15 PM ANIMAL NUTRITION TEACHER Luann Flores Provider documented as of this encounter Plan of Treatment Not on file documented as of this encounter Procedures Procedure Name Priority Date/Time Associated Diagnosis Comments BREAST IMAGING MG SCREENING OUTSIDE REFERENCE Routine 02/29/2020 12:00 AM ANIMAL NUTRITION TEACHER documented in this encounter Results * Breast Imaging Screening Outside Reference (02/29/2020 12:00 AM ANIMAL NUTRITION TEACHER) Impressions [facility]MO[facility] - 04/18/2023 3:33 PM ANIMAL NUTRITION TEACHER These images are for Reference purposes only and have not been reviewed by [facility] Radiology. There will be no report generated by a [facility] Radiologist. Narrative RAD_M[facility]MO[facility] - 04/18/2023 3:33 PM ANIMAL NUTRITION TEACHER EXAMINATION: Images For Reference Purposes Only us Provider Transcribed Order IMG MAMMO PROCEDURES Final Result [facility] documented in this encounter Visit Diagnoses Not on filedocumented in this encounter Care Teams Director Data Relationship Specialty Start Date End Date Justina Lepe MD PCP - General 07/22/18 documented as of this encounter
--- OUTSIDE RECORDS SUMMARY | 2024-06-29 10:45 | XMS_ITS | Encounter Summary ---
Author Organization [facility] Healthcare Address [address] [place] [address] Care Team Providers Care International Organizer Name Role Phone Unavailable Primary Care Provider Unavailabl e Reason for Visit * Diagnostic Imaging (Routine) - Closed Specialty Diagnoses / Procedures Referred By Contac t Referred To Contact Procedures Breast Imaging Screening Outside Reference Transcribed Order, Provider Referral ID Status Reason Start Date Expiration Date Visits Re quested Visits Authorized [id number] Closed 04/18/2023 05/17/2024 1 1 Encounter Details Date Type Department Care Team (Late st Contact Info) Description 02/08/2018 Hospital Encounter [facility] [address] [place] [address] [phone] Social History Tobacco Use Types Packs/Day Years [...] on file Legal Sex Female 5:55 PM COCOA MILLING MACHINE OPERATOR Gender Identity Female 11/29/2020 1:15 PM CDT Sexual Orientation Straight 11/29/2020 1: 15 PM CDT documented as of this encounter Functional Status * Audit-C Score Answer Date of Assessment Author 2 03/28/2024 12:15 PM COCOA MILLING MACHINE OPERATOR Luann Flores Provider * Q1: How often do you have a drink containing alcohol? Answer Date of Assessment Author 2-4 times a month 03/28/2024 12:15 PM COCOA MILLING MACHINE OPERATOR Luann Nam Provider * Q2: How many drinks containing alcohol do you have on a typical day when you are drinking? Answer Date of Assessment Author 1 or 2 03/28/2024 12:15 PM COCOA MILLING MACHINE OPERATOR Luann Flores Provider * Q3: How often do you have six or more drinks on one occasion? Answer Date of Assessment Author Never 03/28/2024 12:15 PM COCOA MILLING MACHINE OPERATOR Luann Flores Provider documented as of this encounter Plan of Treatment Not on file documented as of this encounter Procedures Procedure Name Priority Date/Time Associated Diagnosis Comments BREAST IMAGING MG SCREENING OUTSIDE REFERENCE Routine 02/08/2018 12:00 AM COCOA MILLING MACHINE OPERATOR documented in this encounter Results * Breast Imaging Screening Outside Reference (02/08/2018 12:00 AM COCOA MILLING MACHINE OPERATOR) Impressions [facility]MO[facility] - 04/18/2023 3:33 PM COCOA MILLING MACHINE OPERATOR These images are for Reference purposes only and have not been reviewed by [facility] Radiology. There will be no report generated by a [facility] Radiologist. Narrative RAD_MAMMO[facility] - 04/18/2023 3:33 PM COCOA MILLING MACHINE OPERATOR EXAMINATION: Images For Reference Purposes Only us Provider Transcribed Order IMG MAMMO PROCEDURES Final Result [facility] documented in this encounter Visit Diagnoses Not on filedocumented in this encounter
--- OUTSIDE RECORDS SUMMARY | 2024-06-29 10:45 | XMS_ITS | Encounter Summary ---
Author Organization [facility] Healthcare Address [address] [place] [address] Care Team Providers Care Case Advocate Name Role Phone Unavailable Primary Care Provider Unavailabl e Reason for Visit * Diagnostic Imaging (Routine) - Closed Specialty Diagnoses / Procedures Referred By Contac t Referred To Contact Procedures Breast Imaging Screening Outside Reference Transcribed Order, Provider Referral ID Status Reason Start Date Expiration Date Visits Re quested Visits Authorized [id number] Closed 04/18/2023 05/17/2024 1 1 Encounter Details Date Type Department Care Team (Late st Contact Info) Description 01/07/2016 Hospital Encounter [facility] [address] [place] [address] [id number] Social History Tobacco Use Types Packs/Day Years [...] on file Legal Sex Female 5:55 PM [employer]IDENT[employer]GRAM WORK[employer] Gender Identity Female 11/29/2020 1:15 PM CDT Sexual Orientation Straight 11/29/2020 1: 15 PM CDT documented as of this encounter Functional Status * Audit-C Score Answer Date of Assessment Author 2 03/28/2024 12:15 PM [employer]IDENTIAL [employer]GRAM WORKER Luann Flores Provider * Q1: How often do you have a drink containing alcohol? Answer Date of Assessment Author 2-4 times a month 03/28/2024 12:15 PM [employer]GRAM WORKER Luann Nam Provider * Q2: How many drinks containing alcohol do you have on a typical day when you are drinking? Answer Date of Assessment Author 1 or 2 03/28/2024 12:15 PM [employer]IAL [employer]GRAM WORKER Luann Flores Provider * Q3: How often do you have six or more drinks on one occasion? Answer Date of Assessment Author Never 03/28/2024 12:15 PM [employer]IDENTIAL [employer]GRAM WORKER Luann Flores Provider documented as of this encounter Plan of Treatment Not on file documented as of this encounter Procedures Procedure Name Priority Date/Time Associated Diagnosis Comments BREAST IMAGING MG SCREENING OUTSIDE REFERENCE Routine 01/07/2016 12:00 AM [employer]IDENTIAL PROGRAM WORKER documented in this encounter Results * Breast Imaging Screening Outside Reference (01/07/2016 12:00 AM RESIDENTIAL PROGRAM WORKER) Impressions [facility] - 04/18/2023 3:33 PM RESIDENTIAL PROGRAM WORKER These images are for Reference purposes only and have not been reviewed by [facility]. There will be no report generated by a [facility] Radiologist. Narrative [facility] - 04/18/2023 3:33 PM RESIDENTIAL PROGRAM WORKER EXAMINATION: Images For Reference Purposes Only us Provider Transcribed Order IMG MAMMO PROCEDURES Final Result [facility] documented in this encounter Visit Diagnoses Not on filedocumented in this encounter
[2024-06-29 11:24] LABS: Albumin Level 4.6 g/dL (3.5-5.1); Calcium 9.8 mg/dL (8.4-10.2); Estimated Glomerular Filt Rate 49
== END 2024-06-29 10:40 | disposition home or self-care (01) ==
LOC: ANHLAB 10:41
PROVIDERS: PCP Internal Medicine; Visit Provider Internal Medicine Hematology & Oncology
DX: M81.0 Age-related osteoporosis without current pathological fracture (principal)
CPT/HCPCS: 36415; 82040; 82310; 82565